=== PATIENT | male | born 1955 | race Caucasian/White ===

== ENCOUNTER → 2018-08-15 | Outpatient (CLI) | payer MEDICARE, OTHER | LOC: COL.RAD 06:57 | DX: I65.23 Occlusion and stenosis of bilateral carotid arteries (principal); I65.02 Occlusion and stenosis of left vertebral artery; J32.0 Chronic maxillary sinusitis | CPT/HCPCS: Q9967 ==

== ENCOUNTER 2020-12-23 09:26 | Day surgery (SDC) | payer MEDICARE, OTHER ==
[~2020-12-23] VITALS: Ht 177.8 cm; Wt 103.4 kg
[2020-12-23] VITALS (7 sets, daily range): BP systolic 143–160; BP diastolic 71–90; PULSE 59–68; TEMP 98–98.4
[2020-12-23] MEDS ORDERED: ASPIRIN 32325 MG/TAB PO (10:15)
[2020-12-23] MEDS ORDERED: TOPROL XL 50MG50 MG PO (10:16)
[2020-12-23] MEDS ORDERED: ZESTRIL 20MG TA20 MG PO (10:46)
[2020-12-23] MEDS ORDERED: GLUCOPHAGE500 MG/TAB PO (10:47)
[2020-12-23] MEDS ORDERED: JANUVIA 100MG100 MG PO (10:48)
[2020-12-23] MEDS ORDERED: ISOSORBIDE MON120 MG PO (10:48)
[2020-12-23] MEDS ORDERED: PLAVIX 75MG TAB75 MG PO (10:49)
[2020-12-23] MEDS ORDERED: TOUJEO MAX (10:51)
[2020-12-23] MEDS ORDERED: VITAMIN C500 MG (10:52)
[2020-12-23] MEDS ORDERED: NATURAL IRON65 MG PO (10:52)
[2020-12-23] MEDS ORDERED: PROTONIX 40MG T40 MG PO (10:53)
--- NOTE | 2020-12-23 12:25 | NUR ---
PT RETURNS TO [facility] VIA CART ACCOMPANIED BY Raman MAR RN. PT AMBULATES TO CHAIR WITH STANDBY ASSIST. GAIT STEADY. PT ALERT AND ORIENTED. ABDOMEN SOFT, NON-TENDER. PT DENIES NAUSEA OR PAIN. PT VITALS WNL. PT RESTING IN CHAIR, SIGNIFICANT OTHER AT BEDSIDE, CALL LIGHT IN REACH.
--- NOTE | 2020-12-23 12:35 | NUR ---
COFFEE AND CHOCOLATE PUDDING PROVIDED PER PT'S REQUEST. DENIES FURTHER NEEDS AT THIS TIME. CALL LIGHT IN REACH, SIGNIFICANT OTHER AT BEDSIDE.
--- NOTE | 2020-12-23 12:37 | NUR ---
DR. LUNA IN TO DISCUSS PROCEDURE WITH PT.
--- NOTE | 2020-12-23 13:10 | NUR ---
PT RESTING IN CHAIR. DRANK ENTIRE GLASS OF COFFEE WITH NO DIFFICULTY. PT DENIES PAIN OR NAUSEA. IV DISCONTINUED. PT CHANGED INTO PERSONAL CLOTHES. SIGNIFICANT OTHER AT BEDSIDE. DENIES NEEDS OR COMPLAINTS, CALL LIGHT IN REACH.
--- NOTE | 2020-12-23 13:20 | NUR ---
PT UP TO RESTROOM INDEPENDENTLY. RETURNS TO [facility].
--- NOTE | 2020-12-23 13:25 | NUR ---
DISCHARGE INSTRUCTIONS AND EDUCATION PROVIDED. PT AND SIGNIFICANT OTHER VERBALIZE UNDERSTANDING, DENIES FURTHER QUESTIONS OR COMPLAINTS AT THIS TIME. CALL LIGHT REACH.
--- NOTE | 2020-12-23 13:35 | NUR ---
PT DISCHARGED VIA WHEEL CHAIR TO PRIVATE VEHICLE. DISCHARGE PACKET AND BELONGINGS SENT WITH PT. PT'S SIGNIFICANT OTHER, XIMENA, DRIVING VEHICLE.
--- NOTE | 2020-12-23 15:03 | NUR ---
PT ATE PUDDING WITHOUT DIFFICULTY. DRINKING COFFEE AT THIS TIME. DENIES FURTHER NEEDS OR COMPLAINTS. CALL LIGHT IN REACH, SIGNIFICANT OTHER AT BEDSIDE.
[2021-07-31] MEDS ORDERED: PLAVIX 75MG TAB75 MG PO (11:25)
[2021-07-31] MEDS ORDERED: HUMALOG100 U/ML SQ (11:27)
[2021-07-31] MEDS ORDERED: TOUJEO300 U/ML SQ (11:27)
[2021-07-31] MEDS ORDERED: NEURONTIN300 MG/CAP PO (11:28)
[2021-07-31] MEDS ORDERED: TOPROL XL100 MG PO (12:08)
== END 2020-12-23 13:35 | disposition home or self-care (01) ==
LOC: SDCO 09:26
DX: D12.0 Benign neoplasm of cecum (principal); K92.1 Melena; K57.30 Diverticulosis of large intestine without perforation or abscess without bleeding; D64.0 Hereditary sideroblastic anemia; K55.20 Angiodysplasia of colon without hemorrhage; R77.8 Other specified abnormalities of plasma proteins; K29.71 Gastritis, unspecified, with bleeding; D50.9 Iron deficiency anemia, unspecified; I25.10 Atherosclerotic heart disease of native coronary artery without angina pectoris; I73.9 Peripheral vascular disease, unspecified; I34.0 Nonrheumatic mitral (valve) insufficiency; E78.5 Hyperlipidemia, unspecified; I25.2 Old myocardial infarction; M19.90 Unspecified osteoarthritis, unspecified site; Z95.1 Presence of aortocoronary bypass graft; Z86.73 Personal history of transient ischemic attack (TIA), and cerebral infarction without residual deficits; Z88.8 Allergy status to other drugs, medicaments and biological substances; Z79.82 Long term (current) use of aspirin; Z79.02 Long term (current) use of antithrombotics/antiplatelets; Z79.4 Long term (current) use of insulin; Z87.891 Personal history of nicotine dependence
CPT/HCPCS: J2704; J7030

== ENCOUNTER → 2022-02-20 | Outpatient (CLI) | payer MEDICARE, OTHER ==
[~2022-02-20] MED LIST: ADMELOG SO100 UNIT/1 SQ; ASPIRIN 32325 MG/TAB PO; ASPIRIN E.C. 8181 MG PO; GLUCOPHAGE500 MG/TAB PO; HUMALOG100 U/ML SQ; ISOSORBIDE MON120 MG PO; JANUVIA 100MG100 MG PO; NATURAL IRON65 MG PO; NEURONTIN300 MG/CAP PO; PLAVIX 75MG TAB75 MG PO; PROTONIX 40MG T40 MG PO; TOPROL XL 50MG50 MG PO; TOPROL XL100 MG PO; TOUJEO MAX; TOUJEO MAX300 UNIT/1 SQ; TOUJEO300 U/ML SQ; VITAMIN C500 MG; ZESTRIL 20MG TA20 MG PO
== END ==
LOC: COL.RAD 13:27
DX: Z12.2 Encounter for screening for malignant neoplasm of respiratory organs (principal); Z87.891 Personal history of nicotine dependence

== ENCOUNTER 2022-02-23 14:00 | Outpatient (RCR) | payer MEDICARE, OTHER ==
[2022-02-16 14:09] VITALS: BP 125/65; PULSE 72; TEMP 98.2
[2022-02-19 14:15] VITALS: BP 127/68; PULSE 87; TEMP 98
--- NOTE | 2022-02-19 15:09 | NUR ---
Pt tolerated iron infusion without complication, pt ambulated out of EU at discharge.
[2022-02-21 14:31] VITALS: BP 121/54; PULSE 80; TEMP 98
[~2022-02-23] VITALS: Ht 177.8 cm; Wt 101.0 kg
[2022-02-23 13:57] VITALS: BP 132/60; PULSE 88; TEMP 99
== END 2022-02-23 14:16 | disposition home or self-care (01) ==
LOC: EUO 14:00
DX: E61.1 Iron deficiency (principal)
CPT/HCPCS: J1756

== ENCOUNTER 2022-05-06 10:00 | Inpatient (IN) | payer MEDICARE, OTHER ==
[~2022-05-06] VITALS: Ht 177.8 cm; Wt 105.6 kg
[2022-05-06 10:28] LABS: BASO # 0.1 K/mm3 (0.0-0.2); BASO % 0.7 % (0.0-2.0); EOS # 0.2 K/mm3 (0.0-0.7); EOS % 1.6 % (0.0-4.0); GRAN # 6.8 K/mm3 (1.4-6.5); GRAN % 68.1 % (42.2-75.2); HEMOGLOBIN 11.5 g/dl (13.5-18.0); LYMPH # 1.9 K/mm3 (1.2-3.4); LYMPH % 19.1 % (20.0-51.0); MEAN CELL VOLUME 84 fl (80.0-100.0); MEAN CORPUSCULAR HEMOGLOBIN 27 pg (27-31); MEAN CORPUSCULAR HGB CONC 32 g/dl (33.0-37.0); MEAN PLATELET VOLUME 9.8 fl (7.4-10.4); MONO % 10.1 % (1.7-9.3); PLATELET COUNT 427 K/mm3 (130-400); RED BLOOD COUNT 4.27 M/mm3 (4.20-5.60); REDCELL DISTRIBUTION WIDTH-CV 16.2 % (11.5-14.5)
[2022-05-06] MEDS ORDERED: ELIQUIS 5MG PO (10:29)
[2022-05-06] MEDS ORDERED: RANEXA 500MG T500 MG PO (10:29)
[2022-05-06] MEDS ORDERED: BYSTOLIC5 MG PO (10:30)
[2022-05-06 10:31] LABS: INR 1.9 (0.8-3.0); PROTHROMBIN TIME 22.4 SECONDS (9.7-12.8)
[2022-05-06 10:34] LABS: PARTIAL THROMBOPLASTIN TIME 36.1 SECONDS (26.0-37.0)
[2022-05-06 10:43] LABS: ALBUMIN 3.5 gm/dL (3.4-4.8); BILIRUBIN,TOTAL 0.6 mg/dL (0.2-1.2); CALCIUM 9.8 mg/dL (8.4-10.2); CREATININE, serum 1.31 mg/dL (0.72-1.25); POTASSIUM 4.7 mmol/L (3.5-4.5); TOTAL PROTEIN 7.4 gm/dL (6.2-8.1)
[2022-05-06 10:52] LABS: TROPONIN-I 0.15 ng/mL (0.00-0.033)
[2022-05-06 13:03] LABS: CHOLESTEROL RISK RATIO 7.7
[2022-05-06 13:11] LABS: COLLECTION METHOD CLEAN CATCH
[2022-05-06 13:20] LABS: MUCOUS Present (NOT PRESENT); SQUAMOUS EPITHELIAL None Seen /hpf (0-10); URINE BACTERIA None Seen /hpf (NONE SEEN); URINE RBC 0-2 /hpf (0-2)
[2022-05-06 13:21] LABS: PH 5 (5-8); URINE APPEARANCE Clear (CLEAR/HAZY); URINE BLOOD Negative (NEGATIVE); URINE COLOR Amber (YELLOW); URINE GLUCOSE 1+ (NEGATIVE); URINE KETONE Negative (NEGATIVE); URINE NITRATE Negative (NEGATIVE); URINE PROTEIN(semi-quant) 1+ (NEGATIVE)
[2022-05-06 14:09] VITALS: BP 116/59; PULSE 75; TEMP 98.8
[2022-05-06 16:00] VITALS: BP 119/63; PULSE 77; TEMP 97.9
--- NOTE | 2022-05-06 16:27 | NUR ---
CALLED AND NOTIFIED DR ABOUT PTS TROP OF 0.138
[2022-05-06 18:40] LABS: PARTIAL THROMBOPLASTIN TIME 34.1 SECONDS (26.0-37.0)
--- NOTE | 2022-05-06 19:02 | NUR ---
NOTIFIED DR. RAMOS RE CRITICAL TROP 0.093, NO NEW ORDERS RECEIVED
[2022-05-06 20:51] VITALS: BP 131/60; PULSE 93; TEMP 98.1
--- NOTE | 2022-05-06 22:25 | NUR ---
Patient assessed around 2114. Complained of pain to left ankle, took scheduled Gabapentin per orders. Patient's BS 251. Called PABLO English, and orders recieved for long acting insulin, and given per orders. Patient did not want to sign consent kulwantight for Heart Cath, states that he wants to make sure that it will be Dr. Avalos that does procedure. Will be NPO after midnight for possible procedure tomorrow. Heparin drip continues per orders. Voices no questions, needs, or concerns at this time. In bed with call light within reach.
[2022-05-07 00:55] VITALS: BP 102/36; PULSE 89; TEMP 98
[2022-05-07 05:30] VITALS: BP 130/63; PULSE 83
--- NOTE | 2022-05-07 05:49 | NUR ---
Patient's Heparin drip increased to 1150 units per orders during the night, recheck PTT at 0700. Denies pain and discomfort. Has been NPO since midnight for possible heart cath today, but did take medication with sips of water. Voices no questions, needs, or concerns at this time. In bed with call light within reach.
[2022-05-07 07:23] VITALS: BP 132/60; PULSE 78; TEMP 98.2
--- NOTE | 2022-05-07 08:00 | NUR ---
Patient sitting up in bed, A&Ox4. VSS. IV CDI, fluids infusing. Denies pain and discomfort. Patient NPO pending rounds. Call light within reach
[2022-05-07 11:09] VITALS: BP 116/63; PULSE 76; TEMP 97.9
--- NOTE | 2022-05-07 14:56 | NUR ---
group home worker met with patient to complete intake and discuss discharge plan. Patient's partner Ramila [phone] (19 years) present at bedside.Patient lives at home with Ramila in [place]. Patient reports that he is independent with his ADL's and does not utilize any DME to assist with mobility. Patient has no home oxygen needs. PCP is Dr. Hsieh with [facility] and he utilizes [facility] for prescriptions. Patient states he does not have a DPOA- established and is not interested in creating one at this time. He does have a son, Dioni ([phone]). Patient is planning on returning home once medically ready. Discharge plan: Home
[2022-05-07 16:20] VITALS: BP 129/62; PULSE 89; TEMP 97.6
--- NOTE | 2022-05-07 17:19 | NUR ---
Discharge paperwork reviewed with the patient and . Patient verbalized an understanding to follow doctors orders. IV removed, tip intact, gauze and coban applied. Patient taken by wheelchair to awaiting vehicle. No further needs expressed
== END 2022-05-07 17:20 | disposition home or self-care (01) | DRG 282 ==
LOC: COL.ER 10:00 → MEDICAL 12:05
PROVIDERS: Physician Assistant; ADMIT Internal Medicine
DX: R07.9 Chest pain, unspecified (principal); I21.A1 Myocardial infarction type 2; I25.10 Atherosclerotic heart disease of native coronary artery without angina pectoris; I73.9 Peripheral vascular disease, unspecified; F43.10 Post-traumatic stress disorder, unspecified; E78.5 Hyperlipidemia, unspecified; Z20.822 Contact with and (suspected) exposure to COVID-19; I95.9 Hypotension, unspecified; E11.9 Type 2 diabetes mellitus without complications; D64.9 Anemia, unspecified; I48.91 Unspecified atrial fibrillation; E86.0 Dehydration; Z79.01 Long term (current) use of anticoagulants; Z86.73 Personal history of transient ischemic attack (TIA), and cerebral infarction without residual deficits; Z88.8 Allergy status to other drugs, medicaments and biological substances; Z79.84 Long term (current) use of oral hypoglycemic drugs; I25.2 Old myocardial infarction; Z79.82 Long term (current) use of aspirin; Z95.1 Presence of aortocoronary bypass graft; Z95.5 Presence of coronary angioplasty implant and graft
CPT/HCPCS: OP; 99239; G0378; J0692; J1644; J1815; J7030

== ENCOUNTER 2022-06-07 19:40 | Observation (INO) | payer MEDICARE, OTHER ==
[2022-06-07] VITALS (14 sets, daily range): BP systolic 101–116; BP diastolic 46–60; PULSE 86–92; TEMP 97.7–98.3; O2SAT 100
[~2022-06-07] VITALS: Ht 180.3 cm; Wt 103.9 kg
--- NOTE | 2022-06-07 10:15 | NUR ---
HANDOFF REPORT RECEIVED FROM [facility]. ED TO START PT'S BLOOD TRANSFUSION PRIOR TO TRANSPORT TO ICU.
[~2022-06-07 19:40] MED LIST changes: +BYSTOLIC5 MG PO; +ELIQUIS 5MG PO; +RANEXA 500MG T500 MG PO
[2022-06-07 20:29] LABS: BASO # 0.1 K/mm3 (0.0-0.2); BASO % 0.9 % (0.0-2.0); EOS # 0.1 K/mm3 (0.0-0.7); EOS % 1.6 % (0.0-4.0); GRAN # 4.5 K/mm3 (1.4-6.5); GRAN % 63.8 % (42.2-75.2); LYMPH # 1.6 K/mm3 (1.2-3.4); LYMPH % 22.9 % (20.0-51.0); MEAN CELL VOLUME 78 fl (80.0-100.0); MEAN CORPUSCULAR HGB CONC 31 g/dl (33.0-37.0); MEAN PLATELET VOLUME 9.9 fl (7.4-10.4); MONO # 0.7 K/mm3 (0.1-0.6); MONO % 10.4 % (1.7-9.3); PLATELET COUNT 315 K/mm3 (130-400); RED BLOOD COUNT 3.52 M/mm3 (4.20-5.60); REDCELL DISTRIBUTION WIDTH-CV 15.2 % (11.5-14.5)
[2022-06-07 20:30] LABS: PROTHROMBIN TIME 22.9 SECONDS (9.7-12.8)
[2022-06-07 20:32] LABS: PARTIAL THROMBOPLASTIN TIME 34.1 SECONDS (26.0-37.0)
[2022-06-07 20:39] LABS: ALBUMIN 3.6 gm/dL (3.4-4.8); BILIRUBIN,TOTAL 0.4 mg/dL (0.2-1.2); CALCIUM 9.7 mg/dL (8.4-10.2); CREATININE, serum 0.95 mg/dL (0.72-1.25); POTASSIUM 3.8 mmol/L (3.5-4.5)
[2022-06-07 20:45] LABS: HEMATOCRIT 27.5 % (42.0-52.0); HEMOGLOBIN 8.6 g/dl (13.5-18.0); MEAN CORPUSCULAR HEMOGLOBIN 24 pg (27-31)
[2022-06-07 20:50] LABS: TROPONIN-I 0.498 ng/mL (0.00-0.033)
--- NOTE | 2022-06-07 23:32 | NUR ---
PT ARRIVED TO ICU. PT ARRIVES WITH [employer] CLOTHING CELL PHONE AND PHONE DIRECTOR OF CONVENTION SERVICES. PT A&O X4. PT ABLE TO STAND TO TRANSFER TO ICU BED FROM ED BED WITH SBA. PT WITH 1U PRBC'S TRANSFUSING AT 175ML/HR. PT TOLLERATING TRANSFUSION WELL. PT WITH CURRENT COMPLAINT OF CHEST DISCOMFORT, RATES 0/10 ON PAIN SCALE.
[2022-06-08] VITALS (509 sets, daily range): BP systolic 123–137; BP diastolic 62–73; PULSE 82–95; TEMP 98–98.4; O2SAT 92–100
[2022-06-08] MEDS ORDERED: FORTAMET500 M1 PO (01:19)
[2022-06-08] MEDS ORDERED: HUMALOG100 U/ML SQ (01:20)
[2022-06-08] MEDS ORDERED: NEURONTIN300 MG/CAP PO (01:22)
[2022-06-08] MEDS ORDERED: LOPID 600M600 MG/TAB PO (01:24)
[2022-06-08 02:33] LABS: HEMATOCRIT 29.2 % (42.0-52.0); HEMOGLOBIN 9.2 g/dl (13.5-18.0)
[2022-06-08 06:13] LABS: BASO % 0.6 % (0.0-2.0); EOS # 0.1 K/mm3 (0.0-0.7); GRAN # 4.3 K/mm3 (1.4-6.5); GRAN % 64.7 % (42.2-75.2); LYMPH # 1.5 K/mm3 (1.2-3.4); LYMPH % 22.5 % (20.0-51.0); MEAN CELL VOLUME 80 fl (80.0-100.0); MEAN CORPUSCULAR HGB CONC 31 g/dl (33.0-37.0); MEAN PLATELET VOLUME 9.7 fl (7.4-10.4); MONO # 0.7 K/mm3 (0.1-0.6); MONO % 9.9 % (1.7-9.3); PLATELET COUNT 289 K/mm3 (130-400); RED BLOOD COUNT 3.64 M/mm3 (4.20-5.60); REDCELL DISTRIBUTION WIDTH-CV 15.3 % (11.5-14.5)
[2022-06-08 06:18] LABS: HEMOGLOBIN 9.1 g/dl (13.5-18.0); MEAN CORPUSCULAR HEMOGLOBIN 25 pg (27-31)
[2022-06-08 06:26] LABS: CALCIUM 8.9 mg/dL (8.4-10.2); CREATININE, serum 0.87 mg/dL (0.72-1.25); POTASSIUM 3.9 mmol/L (3.5-4.5)
[2022-06-08 06:43] LABS: TROPONIN-I 1.308 ng/mL (0.00-0.033)
--- NOTE | 2022-06-08 07:00 | NUR ---
PT RESTING IN BED. VSS. PT HAS CALL LIGHT WITHIN REACH. PT INSTRUCTED TO REMAIN NPO UNTIL SEEN BY CARDIOLOGY. PT INSTRUCTED TO CALL WITH ALL NEEDS. 0162- YADIRA PRESTRESSED CONCRETE LABORER CALLED REGARDING PLAN. KEEP NPO AND HE WILL SEE THIS AM.
--- NOTE | 2022-06-08 08:52 | NUR ---
embroidery worker met with patient to discuss discharge planning. Patient states that he lives alone in [place] and will return there via a friend that will transport. Patient confirms that he has Medicare A & B and [employer] as secondary. Patient states that he has precription drug coverage and his primary care provider is Dr Dunn. Patient states he is independent with his activities of daily living and denies unmet needs at home. Discharge plan: Home.
--- NOTE | 2022-06-08 10:32 | NUR ---
Initial visit; Patient thanked Speech Language Specialist for introducing herself though declined spiritual care. Speech Language Specialist offered God's blessings.
--- NOTE | 2022-06-08 10:38 | NUR ---
hospital social worker met with patient and his significant other to discuss discharge planning. Patient lives with sig other and states that he is independent with his activities of daily living and plans to return home upon discharge. Patient's primary care provider is Dr Watts in [place]. Patient confirms that her has Medicare A & B and [employer] is his supplement. Patient states that at times he has a large to manage copay for prescriptions and cannot utlize discount prescription cards due to having Medicare. Patient and sig other deny concerns related to discharging home. Discharge plan: Home with sig other.
--- NOTE | 2022-06-08 11:37 | NUR ---
DISCHARGE INSTRUCTIONS DISUCSSED WITH PT AND . FOLLOW UP DISCUSSED. ALL QUESTION ANSWERED. IV AND TELE DCD. PT WALKED OUT FOR DISCHARGE.
--- NOTE | 2022-06-12 14:00 | NUR ---
RE: Cardiac Rehab staff did not follow up in patient due to staffing and unclear diagnosis of NSTEMI type 1 vs 2. F/u call made to patient 06/12 by staff to confirm f/u with cardiology and possible Cardiac Rehab due to diagnosis.
== END 2022-06-08 11:30 | disposition home or self-care (01) ==
LOC: COL.ER 19:40 → ICU 22:06
PROVIDERS: Emergency Medicine; Nurse Practitioner Family; ADMIT Internal Medicine
DX: I25.10 Atherosclerotic heart disease of native coronary artery without angina pectoris (principal); I21.4 Non-ST elevation (NSTEMI) myocardial infarction; D50.9 Iron deficiency anemia, unspecified; I10 Essential (primary) hypertension; E78.5 Hyperlipidemia, unspecified; Z86.73 Personal history of transient ischemic attack (TIA), and cerebral infarction without residual deficits; I77.9 Disorder of arteries and arterioles, unspecified; I48.91 Unspecified atrial fibrillation; E11.40 Type 2 diabetes mellitus with diabetic neuropathy, unspecified; Z79.4 Long term (current) use of insulin; F43.10 Post-traumatic stress disorder, unspecified; Z79.82 Long term (current) use of aspirin; Z79.02 Long term (current) use of antithrombotics/antiplatelets; Z87.891 Personal history of nicotine dependence
CPT/HCPCS: G0378; J1815; P9016

== ENCOUNTER → 2022-06-13 | Outpatient (CLI) | payer MEDICARE, OTHER ==
[2022-06-08] VITALS (32 sets, daily range): O2SAT 98–100
[~2022-06-13] MED LIST changes: +FORTAMET500 M1 PO; +LOPID 600M600 MG/TAB PO
== END ==
LOC: COL.RAD 09:59
DX: I65.23 Occlusion and stenosis of bilateral carotid arteries (principal); I65.03 Occlusion and stenosis of bilateral vertebral arteries; Z98.890 Other specified postprocedural states
CPT/HCPCS: Q9967